=== PATIENT | male | born 1970 | race Caucasian/White ===

== ENCOUNTER 2018-08-12 09:41 | Emergency (ER) | payer OTHER ==
[2018-08-12 10:41] LABS: ADD MAN DIFF? NO
[2018-08-12] MEDS: ASPIRIN 81 MG TAB PO (10:45)
[2018-08-12 10:46] LABS: BASOPHILS % 0.5 % (0.0-2.0); EOSINOPHILS # 0.1 10^3/ul (0.0-0.5); EOSINOPHILS % 2.3 % (0.0-7.0); HEMATOCRIT 46.3 % (42.0-52.0); HEMOGLOBIN 15.4 g/dl (14.0-18.0); LYMPHOCYTES # 1.7 10^3/ul (0.8-2.9); LYMPHOCYTES % 30.3 % (15.0-51.0); MEAN CORPUSCULAR HEMOGLOBIN 28.8 pg (29.0-33.0); MEAN CORPUSCULAR HGB CONC 33.3 g/dl (32.0-37.0); MEAN CORPUSCULAR VOLUME 86.7 fl (82.0-101.0); MEAN PLATELET VOLUME 8.9 fl (7.4-10.4); MONOCYTE # 0.5 10^3/ul (0.3-0.9); MONOCYTES % 8.8 % (0.0-11.0); NEUTROPHIL # 3.2 10^3/ul (1.6-7.5); NEUTROPHILS % 57.7 % (39.0-77.0); PLATELET COUNT 277 10^3/UL (140-415); RED BLOOD COUNT 5.34 10^6/ul (4.70-6.10); RED CELL DISTRIBUTION WIDTH 12.4 % (11.5-14.5)
[2018-08-12 10:46] LABS: WHITE BLOOD COUNT 5.6 10^3/ul (4.8-10.8)
[2018-08-12 11:22] LABS: ANION GAP 10 (5-13); BLOOD UREA NITROGEN 20 mg/dl (7-20); CALCIUM 9.4 mg/dl (8.4-10.2); CARBON DIOXIDE 28 mmol/L (21-31); CHLORIDE 104 mmol/L (97-110); CREATININE 0.92 mg/dl (0.61-1.24); Estimated GFR > 60 mL/min (>60); GLUCOSE 87 mg/dl (70-220); POTASSIUM 4.5 mmol/L (3.5-5.1); SODIUM 142 mmol/L (135-144)
[2018-08-12 11:35] LABS: TROPONIN-I < 0.012 ng/ml (0.000-0.120)
[2018-08-12 14:03] LABS: TROPONIN-I < 0.012 ng/ml (0.000-0.120)
== END 2018-08-12 14:46 | disposition home or self-care (01) ==
LOC: E/R 09:41
DX: R07.89 Other chest pain (principal); Z87.891 Personal history of nicotine dependence
CPT/HCPCS: 36415; 71045; 80048; 84484; 85025; 93005; 99285-25

== ENCOUNTER 2019-02-07 05:23 | Day surgery (SDC) | payer OTHER ==
[2019-02-07] MEDS: CLINDAMYCIN 600 MG/D5W (PMX) 50 ML IVPB (06:00)
[2019-02-07] MEDS: SOD CHLORIDE 0.9% 1,000 ML IV (06:36)
[2019-02-07] MEDS ORDERED: FENTAnyl 50 MCG/ML VIAL (07:25)
[2019-02-07] MEDS ORDERED: MIDAZOLAM 1 MG/ML 2 ML INJ (07:25)
[2019-02-07] MEDS ORDERED: PROPOFOL 20 ML ×2 (07:25→08:15)
[2019-02-07] MEDS ORDERED: LIDOCAINE 100 MG SYRINGE (07:25)
[2019-02-07] MEDS ORDERED: hydrALAzine 20 MG INJ IV (07:30)
[2019-02-07] MEDS ORDERED: IPRATROPIUM (NEB) 0.5 MG/2.5 ML AMP HHN (07:30)
[2019-02-07] MEDS ORDERED: ALBUTEROL 0.083% (NEB) 2.5 MG/3 ML AMP HHN (07:30)
[2019-02-07] MEDS ORDERED: MEPERIDINE 25 MG INJ IV (07:30)
[2019-02-07] MEDS ORDERED: OXYCODONE/ACETAMINOPHEN (5/325) TAB PO ×2 (07:30)
[2019-02-07] MEDS ORDERED: LABETALOL HCL 20MG INJ IV (07:30)
[2019-02-07] MEDS ORDERED: ONDANSETRON 4 MG INJ IV (07:30)
[2019-02-07] MEDS ORDERED: FENTAnyl 50 MCG/ML VIAL IV ×3 (07:30)
[2019-02-07] MEDS ORDERED: DIPHENHYDRAMINE 50 MG INJ IV (07:30)
[2019-02-07] MEDS ORDERED: HYDROmorphONE 1 MG/5 ML IV SYRINGE IV ×2 (07:30)
[2019-02-07] MEDS ORDERED: EPHEDrine 25 MG/5 ML SYG IV (07:30)
[2019-02-07] MEDS ORDERED: PHENYLephrine (100 MCG/ML) 10ML SYG (08:09)
[2019-02-07] MEDS ORDERED: DEXAMETHASONE 4 MG/ML 5 ML INJ (08:09)
[2019-02-07] MEDS ORDERED: ONDANSETRON 4 MG INJ (08:09)
[2019-02-07] MEDS: POLYMYXIN/BACITRACIN 1L IRRIG (08:11)
[2019-02-07] MEDS: BUPIVACAINE 0.25% (MPF) 30 ML INJ (08:26)
[2019-02-07] MEDS: HYDROmorphONE 1 MG/5 ML IV SYRINGE IV (08:53)
[2019-02-07] MEDS: HYDROCODONE/APAP (5/325) TAB PO (09:11)
== END 2019-02-07 10:18 | disposition home or self-care (01) ==
LOC: SDS 05:23
DX: K40.30 Unilateral inguinal hernia, with obstruction, without gangrene, not specified as recurrent (principal)
CPT/HCPCS: 49505